=== PATIENT | female | born 2000 ===

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

== ENCOUNTER 2019-05-25 17:24 | Emergency (ER) | payer OTHER ==
--- NOTE | 2019-05-25 18:27 | ED ---
GI/ HPI - HPI Summary HPI Summary: 19-year-old female with no significant past medical history presents to the emergency department today with chief complaint of "coughing up blood last night and vomiting up blood". She states she's had an upper respiratory infection for the last week with a significant dry cough and then yesterday she coughed up "a teaspoon of blood twice" and threw up and noticed blood in it. She endorses having a significantly sore throat today but has no other complaints. She denies recent travel outside the [place], fever, NSAID use, chest pain, abdominal pain, pending urination, blood per rectum, dark colored stools. She denies recreational drug use but endorses alcohol use last night. - History of Current Complaint Chief Complaint: EDGIBleed Time Seen by Provider: 05/25/19 18:02 Stated Complaint: COUGHING/VOMITTING UP BLOOD PER PT Hx Obtained From: Patient Hx Last Menstrual Period: 07/17/17 Onset/Duration: Started Hours Ago - 12 hours ago Severity: Mild Current Severity: None Vaginal Bleeding Description: Bright Red Pain Intensity: 0 Location of Pain: Other - Throat pain Pain Characteristics: Sharp Associated Signs and Symptoms: Positive: Hematemesis, Vomiting. Negative: Weakness, Syncope, Nausea, Bright Red Blood w/Stool, Blood w/Stool, Diarrhea, Fever Additional Signs & Symptoms: Negative: Recent Travel Aggravating Factor(s): Coughing - Allergy/Home Medications Allergies/Adverse Reactions: Allergies Allergy/AdvReac Type Severity Reaction Status Date / Time No Known Allergies Allergy Verified 05/25/19 17:28 Home Medications: Home Medications FLUoxetine CAP* [PROzac CAP*] 40 mg PO DAILY 05/25/19 [History Confirmed ] PMH/Surg Hx/FS Hx/Imm Hx - Surgical History Surgery Procedure, Year, and Place: t&a Infectious Disease History: No Infectious Disease History: Denies: Traveled Outside the [place] in Last 30 Days - Social History Alcohol Use: Occasionally Substance Use Type: Reports: None Smoking Status (MU): Never Smoked Tobacco Review of Systems Constitutional: Negative Cardiovascular: Negative Respiratory: Negative Gastrointestinal: Negative Genitourinary: Negative Skin: Negative Neurological: Negative Psychological: Normal All Other Systems Reviewed And Are Negative: Yes Physical Exam Triage Information Reviewed: Yes Vital Signs On Initial Exam: Initial Vitals Temp Pulse Resp BP Pulse Ox 98.2 F 104 19 121/78 99 05/25/19 17:26 05/25/19 17:26 05/25/19 17:26 05/25/19 17:26 05/25/19 17:26 Vital Signs Reviewed: Yes Appearance: Positive: Well-Appearing, No Pain Distress, Well-Nourished Skin: Positive: Warm, Skin Color Reflects Adequate Perfusion Head/Face: Positive: Normal Head/Face Inspection Eyes: Positive: EOMI, TANESHA ENT: Positive: Hearing grossly normal, Pharyngeal erythema - Significant erythema to the posterior pharynx Neck: Positive: Nontender, No Lymphadenopathy Respiratory/Lung Sounds: Positive: Clear to Auscultation, Breath Sounds Present , Decreased Breath Sounds Cardiovascular: Positive: RRR, S1, S2 Abdomen Description: Positive: Nontender, Soft Neurological: Positive: Sensory/Motor Intact, Alert, Oriented to Person Place, Time, Normal Gait, Speech Normal Psychiatric: Positive: Normal AVPU Assessment: Alert Procedures - Sedation Patient Received Moderate/Deep Sedation with Procedure: No Diagnostics - Vital Signs Vital Signs Temp Pulse Resp BP Pulse Ox 05/25/19 17:26 98.2 F 104 19 121/78 99 - Laboratory Result Diagrams: 05/25/19 18:31 05/25/19 18:31 Lab Statement: Any lab studies that have been ordered have been reviewed, and results considered in the medical decision making process. GIGU Course/Dx - Course Course Of Treatment: Patient was evaluated in emergency department today for coughing up blood. The patient was seen and examined. Her vital signs are noted and were stable and afebrile. After examination a chest x-ray was ordered as well as laboratory studies to rule out pathology such as pneumonia, Boerhaave's, tuberculosis. Laboratory results returned showing a white blood cell count of 9.3. There is no evidence of proptosis or neutrophilic shift. There are noabnormalities however this C reactive protein is elevated at 12.50 this is likely due to her recent viral upper respiratory infection. Blood test was negative. Chest x-ray revealed no evidence of tuberculosis, pneumonia, Boerhaave syndrome, other acute pathology. It is likely the patient s symptoms are due to chronic cough which irritated her posterior pharynx and caused scant amount of bleeding. It is determined there is no acute medical problems requiring immediate intervention. She is to follow-up with her primary care provider or school health clinic within 2-3 days for further evaluation and management of her symptoms. She was informed to return to the emergency department immediately she developed any new or worsening symptoms. Patient agreed with this plan. - Diagnoses Differential Diagnoses - Female: GI Foreign Body, Pneumonia, Vomiting Provider Diagnoses: Hemoptysis, unspecified Discharge ED - Sign-Out/Discharge Documenting (check all that apply): Patient Departure - Discharge Plan Condition: Stable Disposition: HOME Patient Education Materials: Hemoptysis (ED) Referrals: No Primary Care Phys,NOPCP [Primary Care Provider] - Additional Instructions: You were seen in the emergency department today due to coughing up blood. Laboratory results and radiologic imaging revealed there is no acute pathology causing your symptoms. It is likely the result of your bloody cough is due to chronic irritation of your throat due to chronic cough from a recent upper respiratory infection caused by a virus. Please follow-up with your [facility] clinic tomorrow for further evaluation. Please return to emergency department if she develops any new or worsening symptoms. Take Tylenol over-the -counter for alleviation of throat pain. - Billing Disposition and Condition Condition: STABLE Disposition: Home
[2019-05-25 18:41] LABS: ABS Basophils 0.1 10^3/ul (0-0.2); ABS Eosinophils 0.1 10^3/ul (0-0.6); ABS Lymphocytes 2.6 10^3/ul (1.0-4.8); ABS Monocytes 0.7 10^3/ul (0-0.8); ABS Neutrophils 5.9 10^3/ul (1.5-7.7); Eosinophil % 0.7 %; Hematocrit 38 % (35-47); Hemoglobin 13.5 g/dL (12.0-16.0); Lymphocyte % 27.7 %; Mean Corpuscular HGB Conc 36 g/dL (31-36); Mean Corpuscular Hemoglobin 31 pg (27-31); Mean Corpuscular Volume 86 fL (80-97); Mean Platelet Volume 6.9 fL (7.4-10.4); Platelet Count 376 10^3/uL (150-450); Red Blood Count 4.42 10^6 /uL (3.70-4.87); Red Cell Distribution Width 13 % (10-15); White Blood Count 9.3 10^3/uL (3.5-10.8)
[2019-05-25 18:54] LABS: ALT 15 U/L (7-52); AST 16 U/L (13-39); Albumin/Globulin Ratio 1.5 (1-3); Alkaline Phosphatase 74 U/L (34-104); Anion Gap 8 mmol/L (2-11); BUN/Creatinine Ratio 15.5 (8-20); Blood Urea Nitrogen 13 mg/dL (6-24); CO2 Carbon Dioxide 25 mmol/L (22-32); Calcium 9.4 mg/dL (8.6-10.3); Chloride 105 mmol/L (101-111); EGFR African American 103.6 (>60); EGFR Non-African American 85.6 (>60); Globulin 2.6 g/dL (2-4); Glucose 89 mg/dL (70-100); Potassium 3.8 mmol/L (3.5-5.0); Sodium 138 mmol/L (135-145); Total Protein 6.6 g/dL (6.4-8.9)
[2019-05-25 19:00] LABS: HCG Pregnancy < 0.60 mIU/mL
[2019-05-25 19:36] VITALS: BP 124/71
== END 2019-05-25 19:35 | disposition home or self-care (01) ==
LOC: ED 17:24
DX: R04.2 Hemoptysis (principal); R11.10 Vomiting, unspecified; Z79.899 Other long term (current) drug therapy
CPT/HCPCS: 36415; 71046; 80053; 84702; 85025; 86140; 99283